=== PATIENT | female | born 1955 | race Caucasian/White ===

== ENCOUNTER 2022-12-18 18:09 | Inpatient (IN) | payer BC, MEDICARE ==
[~2022-12-18 18:09] MED LIST: Iopamidol-370 76% 500 ML MDV (1 ML CHARGE) ONE
[2022-12-18 20:17] LABS: #Monocytes 0.1 thou/uL (0.11-0.59); %Basophils 1.2 % (0.0-1.0); %Eosinophils 1.2 % (0.0-10.0); %Lymphocytes 24.8 % (21.0-51.0); %Monocytes 8.1 % (0.0-10.0); %Neutrophils 64.1 % (42.0-75.0); Hemoglobin 11.6 g/dL (12.0-16.0); Mean Corpuscular HGB CONC 33.8 g/dL (32.0-36.0); Mean Corpuscular Hemoglobin 31.5 pg (27.0-31.0); Mean Corpuscular Volume 93.2 fl (78.0-98.0); Mean Platelet Volume 10.5 fL (7.4-10.4); Platelet Count 104 10x3/uL (130-400); RBC Distribution Width 16.1 % (11.5-14.5); Red Blood Cell (RBC) Count 3.68 mill/uL (4.20-5.40); White Blood Cell (WBC) Count 1.6 10x3/uL (4.8-10.8)
[2022-12-18 20:39] LABS: Lipase 18 U/L (8-78); Magnesium 2.2 mg/dL (1.6-2.6)
[2022-12-18 20:41] LABS: ALT (SGPT) Less than 7 U/L (8-55); AST (SGOT) 12 U/L (5-34); Albumin 3.8 g/dL (3.4-4.8); Alkaline Phosphatase 46 U/L (40-110); Anion Gap 17 mmol/L (10-20); BUN (Urea Nitrogen) 15 mg/dL (9.8-20.1); Bilirubin, Total 1.2 mg/dL (0.2-1.2); CK (CPK) 68 U/L (29-168); Calc. Creatinine Clearance 0 mL/min (70-130); Calcium 9.7 mg/dL (7.8-10.44); Carbon Dioxide 27 mmol/L (23-31); Chloride 98 mmol/L (98-107); Estimated GFR 60; Globulin 3.6 g/dL (2.4-3.5); Glucose 63 mg/dL (80-115); Potassium 3.5 mmol/L (3.5-5.1); Protein, Total 7.4 g/dL (5.8-8.1); Sodium 138 mmol/L (136-145)
[2022-12-18 21:13] LABS: Bacteria/HPF 4+ HPF (None Seen); Bilirubin 1+ (Negative); Blood, Urine Negative (Negative); CAUTI Indications for Culture Alt mental st,lethar; Clarity Turbid (Clear); Glucose, Urine (Dipstick) Normal (Negative); Ketone, Urine 20 mg/dL (Negative); Leukocyte Negative Leu/uL (Negative); Nitrite 2+ (Negative); Protein, Urine (Dipstick) 70 mg/dL (Neg-Trace); RBC/HPF 0-3 HPF (0-3); Specific Gravity, Urine 1.034 (1.002-1.036); Urobilinogen Normal mg/dL (Less than 2)
[2022-12-18 21:14] LABS: Urine Culture Reflex No No
[2022-12-18 21:52] LABS: Actual Bicarbonate (HCO3v) 27.7 mEq/L (22-28); Analyzer IN Cardio ER; Calcium, Ionized (venous) 1.09 mmol/L (1.16-1.32); Chloride (VBG) 99 mmol/L (98-106); Hematocrit-VBG 36 % (36.0-47.0); Hemoglobin (Hb) 12.1 g/dL (11.7-16.1); Potassium (VBG) 3.29 mmol/L (3.70-5.30); Sodium 136.3 mmol/L (133-146); pH (venous) 7.383 (7.32-7.43)
[2022-12-18] MEDS ORDERED: cefTRIAXone (ROCEPHIN) 2 GM VIAL ONE (22:29)
[2022-12-18] MEDS ORDERED: Ondansetron PF 4 MG/2 ML Vial IVP PRN (22:51)
[2022-12-18] MEDS ORDERED: Acetaminophen 325 MG TAB PO PRN (22:51)
[2022-12-18] MEDS ORDERED: Dextrose 50% Abboject 50 ML SYRINGE SLOW IVP PRN (22:55)
[2022-12-18] MEDS ORDERED: Glucagon 1 MG/ML KIT IM PRN (22:55)
[2022-12-18] MEDS ORDERED: Levothyroxine Sodium 200 MCG VIAL SLOW IVP SCH (23:00)
[2022-12-18] MEDS ORDERED: Furosemide 20 MG/2 ML VIAL SLOW IVP SCH (23:15)
[2022-12-19 05:42] LABS: #Monocytes 0.1 thou/uL (0.11-0.59); #Neutrophils 1.3 thou/uL (1.40-6.50); %Basophils 1.1 % (0.0-1.0); %Eosinophils 1.1 % (0.0-10.0); %Lymphocytes 17.5 % (21.0-51.0); %Monocytes 6.8 % (0.0-10.0); %Neutrophils 72.4 % (42.0-75.0); Hemoglobin 12.7 g/dL (12.0-16.0); Mean Corpuscular HGB CONC 32.7 g/dL (32.0-36.0); Mean Corpuscular Hemoglobin 31.1 pg (27.0-31.0); Mean Corpuscular Volume 95.1 fl (78.0-98.0); Mean Platelet Volume 10.8 fL (7.4-10.4); RBC Distribution Width 16.2 % (11.5-14.5); Red Blood Cell (RBC) Count 4.08 mill/uL (4.20-5.40); White Blood Cell (WBC) Count 1.8 10x3/uL (4.8-10.8)
[2022-12-19 05:44] LABS: Manual Diff?? YES; Platelet Count 85 10x3/uL (130-400)
[2022-12-19] MEDS: Furosemide 20 MG/2 ML VIAL SLOW IVP SCH ×2 (05:59→14:18)
[2022-12-19 06:00] LABS: Anion Gap 22 mmol/L (10-20); BUN (Urea Nitrogen) 13 mg/dL (9.8-20.1); Calc. Creatinine Clearance 56 mL/min (70-130); Calcium 9.1 mg/dL (7.8-10.44); Carbon Dioxide 20 mmol/L (23-31); Chloride 98 mmol/L (98-107); Estimated GFR 68; Glucose 121 mg/dL (80-115); Magnesium 2.1 mg/dL (1.6-2.6); Potassium 3.6 mmol/L (3.5-5.1); Sodium 136 mmol/L (136-145)
[2022-12-19] MEDS ORDERED: Levothyroxine 100 MCG SDV IVP SCH (06:00)
[2022-12-19 06:29] LABS: Anisocytosis SLIGHT = 6-15 cells HPF (0-5); Band 20 % (5-11); Burr Cells SLIGHT = 2-5 cells HPF (0-1); Large Platelets 3.3 % (0-5); Lymphocytes 11 % (21-51); Macrocytosis MODERATE=16-30 cells HPF (0-5); Monocytes 2 % (0-10); Neutrophil 67 % (42-75); Platelet Adequacy Comment Platelets Decreased; Poikilocytosis SLIGHT = 6-15 cells HPF (0-5); Total Cell Count 92
[2022-12-19 08:47] LABS: Free T4 (Free Thyroxine) 1.09 ng/dL (0.70-1.48)
[2022-12-19] MEDS: Dextrose 5 %-0.45 % NaCl 1,000 ML IV SCH (11:42)
[2022-12-19] MEDS ORDERED: VANCOMYCIN 1.25 GM/250 ML BAG 1.25 GM in Premix Bag 1 BAG IVPB SCH (15:15)
[2022-12-19] MEDS: cefTRIAXone\\ROCEPHIN 1 GM in Sodium Chloride 0.9% 100 ML IVPB SCH (23:40)
[2022-12-20] MEDS ORDERED: Sodium Chloride 0.9% 500 ML IV SCH (00:30)
[2022-12-20] MEDS ORDERED: Midodrine HCl 5 MG TAB PO SCH (01:15)
[2022-12-20 04:05] LABS: Hemoglobin 10.2 g/dL (12.0-16.0); Mean Corpuscular HGB CONC 33.6 g/dL (32.0-36.0); Mean Corpuscular Hemoglobin 31.5 pg (27.0-31.0); Mean Corpuscular Volume 93.8 fl (78.0-98.0); Mean Platelet Volume 10.5 fL (7.4-10.4); RBC Distribution Width 15.7 % (11.5-14.5); Red Blood Cell (RBC) Count 3.24 mill/uL (4.20-5.40); White Blood Cell (WBC) Count 1.3 10x3/uL (4.8-10.8)
[2022-12-20 04:15] LABS: Delete Auto Diff?? YES; Manual Diff?? YES; Platelet Count 81 10x3/uL (130-400)
[2022-12-20 04:35] LABS: Anion Gap 15 mmol/L (10-20); BUN (Urea Nitrogen) 11 mg/dL (9.8-20.1); Calc. Creatinine Clearance 61 mL/min (70-130); Calcium 8.6 mg/dL (7.8-10.44); Carbon Dioxide 31 mmol/L (23-31); Chloride 95 mmol/L (98-107); Estimated GFR 77; Glucose 75 mg/dL (80-115); Magnesium 1.9 mg/dL (1.6-2.6); Sodium 138 mmol/L (136-145)
[2022-12-20 04:44] LABS: Band 5 % (5-11); CellaVision Operator ID lab.abc; Eosinophils 2 % (0-10); Large Platelets 3.2 % (0-5); Lymphocytes 13 % (21-51); Monocytes 2 % (0-10); Neutrophil 78 % (42-75); Platelet Adequacy Comment Platelets Decreased; Smudge Cells 25.5 %; Total Cell Count 94
[2022-12-20 04:45] LABS: Free T4 (Free Thyroxine) 0.76 ng/dL (0.70-1.48); Thyroid Stimulating Hormone 37.6963 uIU/mL (0.35-4.94)
[2022-12-20 05:02] LABS: Potassium 2.5 mmol/L (3.5-5.1)
[2022-12-20] MEDS: Dextrose 5 %-0.45 % NaCl 1,000 ML IV SCH (05:07)
[2022-12-20] MEDS: Furosemide 20 MG/2 ML VIAL SLOW IVP SCH (05:11)
[2022-12-20] MEDS: Levothyroxine Sodium 100 MCG TAB PO SCH (05:12)
[2022-12-20] MEDS ORDERED: Potassium Chloride 20 MEQ in Premix Bag 1 BAG IVPB SCH (05:15)
[2022-12-20] MEDS: Potassium Chloride 20 MEQ TAB PO SCH ×3 (07:15→21:26)
[2022-12-20] MEDS ORDERED: Pantoprazole 40 MG VIAL IVP SCH (09:00)
[2022-12-20] MEDS ORDERED: Bupivacaine HCl 0.5%/Epinephrine 1:200,000/PF 30 ml Vial ONE (09:05)
[2022-12-20] MEDS ORDERED: Ketamine 50 MG/ML (10ML VIAL) ONE (09:14)
[2022-12-20] MEDS ORDERED: Norepinephrine 4 MG/4 ML VIAL ONE (09:15)
[2022-12-20] MEDS ORDERED: Succinylcholine 200 MG/10 ml SYRINGE FS ONE (09:51)
[2022-12-20] MEDS ORDERED: ePHEDrine Sulfate 50 MG/10 ML VIAL ONE (09:51)
[2022-12-20] MEDS ORDERED: PHENYLEPHRINE-NS 100 MCG/ML 10 ML SYRINGE ONE (09:51)
[2022-12-20] MEDS ORDERED: Glycopyrrolate 0.2 MG/ML 5 ML SYRINGE ONE (09:51)
[2022-12-20] MEDS ORDERED: Ondansetron PF 4 MG/2 ML Vial ONE (09:51)
[2022-12-20] MEDS ORDERED: traMADol HCl 50 MG TAB PO PRN (10:51)
[2022-12-20] MEDS: Polyethylene Glycol 3350 17 GM Packet PO SCH (14:34)
[2022-12-20 16:13] LABS: Amphetamine Not Detected (NotDetected); Barbiturates Screen Not Detected (NotDetected); Benzodiazepine Screen Not Detected (NotDetected); Cocaine Metabolite Screen Not Detected (NotDetected); Methadone Not Detected (NotDetected); Methamphetamine Not Detected (NotDetected); Opiate Screen Not Detected (NotDetected); Oxycodone Screen Not Detected (NotDetected); Phencyclidine (PCP) Not Detected (NotDetected); THC/Cannabinoid Screen Not Detected (NotDetected); Tricyclic Screen Not Detected (NotDetected)
[2022-12-20] MEDS: Vancomycin 1 GM in Premix Bag 1 BAG IVPB SCH (17:31)
[2022-12-20 22:30] LABS: #Monocytes 0.1 thou/uL (0.11-0.59); #Neutrophils 2.1 thou/uL (1.40-6.50); %Basophils 0.8 % (0.0-1.0); %Eosinophils 0.4 % (0.0-10.0); %Lymphocytes 12.6 % (21.0-51.0); %Monocytes 3.1 % (0.0-10.0); %Neutrophils 82.3 % (42.0-75.0); Hemoglobin 12.5 g/dL (12.0-16.0); Mean Corpuscular HGB CONC 33.2 g/dL (32.0-36.0); Mean Corpuscular Volume 93.3 fl (78.0-98.0); Mean Platelet Volume 10.5 fL (7.4-10.4); RBC Distribution Width 15.6 % (11.5-14.5); Red Blood Cell (RBC) Count 4.03 mill/uL (4.20-5.40); White Blood Cell (WBC) Count 2.5 10x3/uL (4.8-10.8)
[2022-12-20 22:36] LABS: Platelet Count 73 10x3/uL (130-400)
[2022-12-20 22:51] LABS: ALT (SGPT) Less than 7 U/L (8-55); AST (SGOT) 12 U/L (5-34); Albumin 3.2 g/dL (3.4-4.8); Alkaline Phosphatase 41 U/L (40-110); Anion Gap 15 mmol/L (10-20); BUN (Urea Nitrogen) 9 mg/dL (9.8-20.1); Bilirubin, Total 1.1 mg/dL (0.2-1.2); Calc. Creatinine Clearance 67 mL/min (70-130); Calcium 8.4 mg/dL (7.8-10.44); Carbon Dioxide 29 mmol/L (23-31); Chloride 95 mmol/L (98-107); Estimated GFR 91; Globulin 2.7 g/dL (2.4-3.5); Glucose 82 mg/dL (80-115); Potassium 2.7 mmol/L (3.5-5.1); Protein, Total 5.9 g/dL (5.8-8.1); Sodium 136 mmol/L (136-145)
[2022-12-20] MEDS: cefTRIAXone\\ROCEPHIN 1 GM in Sodium Chloride 0.9% 100 ML IVPB SCH (23:03)
[2022-12-20 23:37] LABS: Magnesium 1.8 mg/dL (1.6-2.6)
[2022-12-21] MEDS ORDERED: Magnesium 2 GM/50 ML(in water) 2 GM in Premix Bag 1 BAG IVPB SCH (00:30)
[2022-12-21] MEDS: Potassium Chloride 20 MEQ TAB PO SCH ×3 (01:07→18:37)
[2022-12-21] MEDS: Levothyroxine Sodium 100 MCG TAB PO SCH (06:17)
[2022-12-21 07:34] LABS: #Monocytes 0.1 thou/uL (0.11-0.59); #Neutrophils 2.1 thou/uL (1.40-6.50); %Basophils 0.4 % (0.0-1.0); %Eosinophils 0.4 % (0.0-10.0); %Lymphocytes 13.9 % (21.0-51.0); %Monocytes 2.8 % (0.0-10.0); %Neutrophils 82.1 % (42.0-75.0); Hemoglobin 12.7 g/dL (12.0-16.0); Mean Corpuscular Hemoglobin 31.2 pg (27.0-31.0); Mean Corpuscular Volume 91.6 fl (78.0-98.0); Mean Platelet Volume 10.2 fL (7.4-10.4); RBC Distribution Width 15.4 % (11.5-14.5); Red Blood Cell (RBC) Count 4.07 mill/uL (4.20-5.40); White Blood Cell (WBC) Count 2.5 10x3/uL (4.8-10.8)
[2022-12-21 07:54] LABS: Anion Gap 15 mmol/L (10-20); BUN (Urea Nitrogen) 9 mg/dL (9.8-20.1); Calc. Creatinine Clearance 68 mL/min (70-130); Calcium 8.5 mg/dL (7.8-10.44); Carbon Dioxide 30 mmol/L (23-31); Chloride 93 mmol/L (98-107); Estimated GFR 90; Glucose 71 mg/dL (80-115); Potassium 3.5 mmol/L (3.5-5.1); Sodium 134 mmol/L (136-145)
[2022-12-21 07:55] LABS: Acetaminophen Less than 10 mcg/mL (10.0-30.0); Alcohol Less than 10.0 mg/dL (Less than 10); Salicylate Less than 8.0 mg/dL (15.0-30.0)
[2022-12-21 08:01] LABS: Platelet Count 68 10x3/uL (130-400)
[2022-12-21 08:02] LABS: Critical Call w/ Read Back NOT CALLED
[2022-12-21 08:11] LABS: HBCM Index 0.16 S/CO (0-0.79); HIV (1/2) Antibody/Antigen Non-Reactive (NonReactive); HIV 1/2 INDEX 0.16 S/CO (<1.00); Hep A IgM AB Non-Reactive S/CO (NonReactive); Hep A IgM S/CO 0.16 S/CO (0-0.79); Hep B Surf Ag Non-Reactive S/CO (NonReactive); Hep C IgG Ab Non-Reactive S/CO (NonReactive); Hep C Index 0.11 S/CO (0-0.79); Hepatitis B Core IgM Abs Non-Reactive S/CO (NonReactive)
[2022-12-21] MEDS: Polyethylene Glycol 3350 17 GM Packet PO SCH (09:11)
[2022-12-21 09:20] LABS: PTT 37.1 sec (22.9-36.1)
[2022-12-21 11:47] LABS: Syphilis Antibody Nonreactive (Nonreactive); Syphilis Antibody Index 0.28 S/CO (<1.00 Non-Reactive)
[2022-12-21] MEDS ORDERED: Temazepam 15 MG CAP PO PRN (14:34)
[2022-12-21 14:45] LABS: INR-International Normal Ratio 1.1; Prothrombin Time 14.5 sec (12.0-14.7)
[2022-12-21 16:02] LABS: Vancomycin, Trough 13.7 ug/mL
[2022-12-21] MEDS: Vancomycin 1 GM in Premix Bag 1 BAG IVPB SCH (16:37)
[2022-12-21] MEDS: cefTRIAXone\\ROCEPHIN 1 GM in Sodium Chloride 0.9% 100 ML IVPB SCH (22:50)
[2022-12-22] MEDS: Levothyroxine Sodium 100 MCG TAB PO SCH (05:40)
[2022-12-22] MEDS: Polyethylene Glycol 3350 17 GM Packet PO SCH (08:43)
[2022-12-22] MEDS: Potassium Chloride 20 MEQ TAB PO SCH ×2 (08:43→16:30)
[2022-12-22 11:03] LABS: #Monocytes 0.1 thou/uL (0.11-0.59); #Neutrophils 1.8 thou/uL (1.40-6.50); %Basophils 1.1 % (0.0-1.0); %Eosinophils 0.8 % (0.0-10.0); %Lymphocytes 23.4 % (21.0-51.0); %Monocytes 4.2 % (0.0-10.0); %Neutrophils 70.1 % (42.0-75.0); Hemoglobin 12.4 g/dL (12.0-16.0); Mean Corpuscular HGB CONC 33.2 g/dL (32.0-36.0); Mean Corpuscular Hemoglobin 31.1 pg (27.0-31.0); Mean Corpuscular Volume 93.5 fl (78.0-98.0); Mean Platelet Volume 10.6 fL (7.4-10.4); RBC Distribution Width 15.5 % (11.5-14.5); Red Blood Cell (RBC) Count 3.99 mill/uL (4.20-5.40); White Blood Cell (WBC) Count 2.6 10x3/uL (4.8-10.8)
[2022-12-22 11:19] LABS: Platelet Count 57 10x3/uL (130-400)
[2022-12-22 11:28] LABS: ALT (SGPT) Less than 7 U/L (8-55); AST (SGOT) 7 U/L (5-34); Alkaline Phosphatase 44 U/L (40-110); Anion Gap 16 mmol/L (10-20); BUN (Urea Nitrogen) 10 mg/dL (9.8-20.1); Bilirubin, Total 0.8 mg/dL (0.2-1.2); Calc. Creatinine Clearance 55 mL/min (70-130); Calcium 8.6 mg/dL (7.8-10.44); Carbon Dioxide 27 mmol/L (23-31); Chloride 94 mmol/L (98-107); Estimated GFR 69; Globulin 2.7 g/dL (2.4-3.5); Glucose 72 mg/dL (80-115); Magnesium 2.1 mg/dL (1.6-2.6); Phosphorus 1.7 mg/dL (2.3-4.7); Potassium 4.4 mmol/L (3.5-5.1); Protein, Total 5.7 g/dL (5.8-8.1); Sodium 133 mmol/L (136-145)
[2022-12-22] MEDS ORDERED: Electrolyte Replacement Protocol 1 EACH FS SCH (14:30)
[2022-12-22 16:24] LABS: ANA Symphony (Qualitative) Negative (Negative); ANA Symphony (Quantitative) 0.3 Ratio (< 0.7 Negative); dsDNA IgG Antibody 1.5 IU/mL (<10 Negative)
[2022-12-22] MEDS: cefTRIAXone\\ROCEPHIN 1 GM in Sodium Chloride 0.9% 100 ML IVPB SCH (22:34)
[2022-12-22] MEDS: PHOS-NAK 1 PKT PACK PO SCH (22:34)
[2022-12-23] MEDS: PHOS-NAK 1 PKT PACK PO SCH (01:43)
[2022-12-23] MEDS: Levothyroxine Sodium 100 MCG TAB PO SCH (05:40)
[2022-12-23 08:08] LABS: #Monocytes 0.1 thou/uL (0.11-0.59); #Neutrophils 1.6 thou/uL (1.40-6.50); %Basophils 1.2 % (0.0-1.0); %Eosinophils 0.4 % (0.0-10.0); %Lymphocytes 28.8 % (21.0-51.0); %Monocytes 4.5 % (0.0-10.0); %Neutrophils 64.7 % (42.0-75.0); Hemoglobin 12.5 g/dL (12.0-16.0); Mean Corpuscular HGB CONC 34.2 g/dL (32.0-36.0); Mean Corpuscular Hemoglobin 30.9 pg (27.0-31.0); Mean Platelet Volume 10.3 fL (7.4-10.4); RBC Distribution Width 15.4 % (11.5-14.5); Red Blood Cell (RBC) Count 4.04 mill/uL (4.20-5.40); White Blood Cell (WBC) Count 2.4 10x3/uL (4.8-10.8)
[2022-12-23 08:30] LABS: Platelet Count 49 10x3/uL (130-400)
[2022-12-23] MEDS: Potassium Chloride 20 MEQ TAB PO SCH ×2 (08:32→17:59)
[2022-12-23] MEDS: Polyethylene Glycol 3350 17 GM Packet PO SCH (08:32)
[2022-12-23 08:45] LABS: ALT (SGPT) Less than 7 U/L (8-55); AST (SGOT) 8 U/L (5-34); Alkaline Phosphatase 44 U/L (40-110); Anion Gap 16 mmol/L (10-20); BUN (Urea Nitrogen) 10 mg/dL (9.8-20.1); Bilirubin, Total 0.9 mg/dL (0.2-1.2); Calc. Creatinine Clearance 64 mL/min (70-130); Calcium 8.7 mg/dL (7.8-10.44); Carbon Dioxide 26 mmol/L (23-31); Chloride 99 mmol/L (98-107); Estimated GFR 83; Globulin 2.7 g/dL (2.4-3.5); Glucose 76 mg/dL (80-115); Phosphorus 3.6 mg/dL (2.3-4.7); Potassium 4.8 mmol/L (3.5-5.1); Protein, Total 5.7 g/dL (5.8-8.1); Sodium 136 mmol/L (136-145)
[2022-12-23] MEDS ORDERED: Magnesium 2 GM/50 ML(in water) 2 GM in Premix Bag 1 BAG IVPB SCH (11:45)
[2022-12-23 12:12] LABS: Mean Corpuscular Volume 90.6 fl (78.0-98.0)
[2022-12-23] MEDS: Sodium Chloride 0.9% 1,000 ML IV SCH (14:44)
[2022-12-24] MEDS: Levothyroxine Sodium 100 MCG TAB PO SCH (05:55)
[2022-12-24 06:51] LABS: #Monocytes 0.1 thou/uL (0.11-0.59); #Neutrophils 1.6 thou/uL (1.40-6.50); %Basophils 1.7 % (0.0-1.0); %Eosinophils 0.8 % (0.0-10.0); %Lymphocytes 27.1 % (21.0-51.0); Mean Corpuscular HGB CONC 34.5 g/dL (32.0-36.0); Mean Corpuscular Hemoglobin 30.9 pg (27.0-31.0); Mean Corpuscular Volume 89.7 fl (78.0-98.0); Mean Platelet Volume 10.9 fL (7.4-10.4); RBC Distribution Width 15.4 % (11.5-14.5); Red Blood Cell (RBC) Count 3.88 mill/uL (4.20-5.40); White Blood Cell (WBC) Count 2.4 10x3/uL (4.8-10.8)
[2022-12-24 06:56] LABS: Platelet Count 45 10x3/uL (130-400)
[2022-12-24 07:19] LABS: Anion Gap 14 mmol/L (10-20); BUN (Urea Nitrogen) 10 mg/dL (9.8-20.1); Calc. Creatinine Clearance 67 mL/min (70-130); Calcium 8.6 mg/dL (7.8-10.44); Carbon Dioxide 24 mmol/L (23-31); Chloride 99 mmol/L (98-107); Estimated GFR 87; Glucose 78 mg/dL (80-115); Iron 107 ug/dL (50-170); Iron Binding Capacity, Total 141 mcg/dL (265-497); Potassium 4.3 mmol/L (3.5-5.1); Sodium 133 mmol/L (136-145)
[2022-12-24 07:41] LABS: Ferritin 394.84 ng/mL (10-291)
[2022-12-24] MEDS: Potassium Chloride 20 MEQ TAB PO SCH ×2 (08:49→16:38)
[2022-12-24] MEDS: Polyethylene Glycol 3350 17 GM Packet PO SCH (08:49)
[2022-12-24] MEDS: Sodium Chloride 0.9% 1,000 ML IV SCH (10:00)
[2022-12-25] MEDS: Levothyroxine Sodium 100 MCG TAB PO SCH (04:54)
[2022-12-25 06:40] LABS: #Monocytes 0.2 thou/uL (0.11-0.59); #Neutrophils 1.6 thou/uL (1.40-6.50); %Basophils 1.2 % (0.0-1.0); %Eosinophils 0.8 % (0.0-10.0); %Lymphocytes 24.8 % (21.0-51.0); %Neutrophils 65.8 % (42.0-75.0); Hemoglobin 12.7 g/dL (12.0-16.0); Mean Corpuscular HGB CONC 34.4 g/dL (32.0-36.0); Mean Corpuscular Hemoglobin 31.3 pg (27.0-31.0); Mean Corpuscular Volume 90.9 fl (78.0-98.0); Mean Platelet Volume 11.4 fL (7.4-10.4); RBC Distribution Width 15.2 % (11.5-14.5); Red Blood Cell (RBC) Count 4.06 mill/uL (4.20-5.40); White Blood Cell (WBC) Count 2.4 10x3/uL (4.8-10.8)
[2022-12-25 06:44] LABS: Platelet Count 40 10x3/uL (130-400)
[2022-12-25 07:04] LABS: Anion Gap 12 mmol/L (10-20); BUN (Urea Nitrogen) 10 mg/dL (9.8-20.1); Calc. Creatinine Clearance 70 mL/min (70-130); Calcium 8.6 mg/dL (7.8-10.44); Carbon Dioxide 24 mmol/L (23-31); Chloride 98 mmol/L (98-107); Estimated GFR 93; Glucose 73 mg/dL (80-115); Potassium 4.1 mmol/L (3.5-5.1); Sodium 130 mmol/L (136-145)
[2022-12-25] MEDS: Sodium Chloride 0.9% 1,000 ML IV SCH (08:38)
[2022-12-25] MEDS: Potassium Chloride 20 MEQ TAB PO SCH ×2 (08:39→16:30)
[2022-12-25] MEDS: Polyethylene Glycol 3350 17 GM Packet PO SCH (08:39)
[2022-12-25] MEDS ORDERED: Megestrol Acetate 400 MG/10 ML UDCUP PO SCH (09:00)
[2022-12-25] MEDS: Lactated Ringer's 1,000 ML IV SCH (11:14)
[2022-12-25 15:06] LABS: Bacteria/HPF None Seen HPF (None Seen); Bilirubin Negative (Negative); Blood, Urine 2+ (Negative); Clarity Turbid (Clear); Glucose, Urine (Dipstick) Normal (Negative); Ketone, Urine 10 mg/dL (Negative); Leukocyte Negative Leu/uL (Negative); Nitrite Negative (Negative); Protein, Urine (Dipstick) Negative (Neg-Trace); RBC/HPF 21-50 HPF (0-3); Specific Gravity, Urine 1.017 (1.002-1.036); Squamous Epithelial 0-3 HPF (0-3); Urobilinogen Normal mg/dL (Less than 2); WBC/HPF 0-3 HPF (0-3)
[2022-12-25] MEDS ORDERED: Mirtazapine 15 MG Soltab PO SCH (21:00)
[2022-12-26] MEDS: Levothyroxine Sodium 100 MCG TAB PO SCH (05:51)
[2022-12-26] MEDS: Lactated Ringer's 1,000 ML IV SCH (05:51)
[2022-12-26 06:28] LABS: #Monocytes 0.2 thou/uL (0.11-0.59); #Neutrophils 1.4 thou/uL (1.40-6.50); %Basophils 0.9 % (0.0-1.0); %Eosinophils 0.9 % (0.0-10.0); %Lymphocytes 26.2 % (21.0-51.0); %Neutrophils 64.5 % (42.0-75.0); Hemoglobin 11.5 g/dL (12.0-16.0); Mean Corpuscular HGB CONC 35.1 g/dL (32.0-36.0); Mean Corpuscular Hemoglobin 31.6 pg (27.0-31.0); Mean Corpuscular Volume 90.1 fl (78.0-98.0); Mean Platelet Volume 10.7 fL (7.4-10.4); RBC Distribution Width 14.7 % (11.5-14.5); Red Blood Cell (RBC) Count 3.64 mill/uL (4.20-5.40); White Blood Cell (WBC) Count 2.1 10x3/uL (4.8-10.8)
[2022-12-26 06:36] LABS: Platelet Count 44 10x3/uL (130-400)
[2022-12-26] MEDS: Potassium Chloride 20 MEQ TAB PO SCH ×2 (08:27→16:47)
[2022-12-26] MEDS: Polyethylene Glycol 3350 17 GM Packet PO SCH (08:27)
[2022-12-26] MEDS ORDERED: Megestrol Acetate 800 MG/20 ML UDCUP PO SCH (09:00)
[2022-12-26] MEDS ORDERED: Ondansetron PF 4 MG/2 ML Vial IVP PRN (15:20)
[2022-12-26] MEDS: Mirtazapine 15 MG TAB PO SCH (21:41)
[2022-12-27] MEDS: Levothyroxine Sodium 100 MCG TAB PO SCH (05:04)
[2022-12-27] MEDS: Lactated Ringer's 1,000 ML IV SCH (05:04)
[2022-12-27] MEDS: Potassium Chloride 20 MEQ TAB PO SCH ×2 (09:25→16:46)
[2022-12-27] MEDS: Polyethylene Glycol 3350 17 GM Packet PO SCH (09:25)
[2022-12-27 11:16] LABS: #Monocytes 0.1 thou/uL (0.11-0.59); #Neutrophils 1.6 thou/uL (1.40-6.50); %Basophils 1.3 % (0.0-1.0); %Eosinophils 0.9 % (0.0-10.0); %Neutrophils 70.4 % (42.0-75.0); Hemoglobin 12.8 g/dL (12.0-16.0); Mean Corpuscular Hemoglobin 30.8 pg (27.0-31.0); Mean Corpuscular Volume 90.8 fl (78.0-98.0); Mean Platelet Volume 11.3 fL (7.4-10.4); RBC Distribution Width 14.9 % (11.5-14.5); Red Blood Cell (RBC) Count 4.15 mill/uL (4.20-5.40); White Blood Cell (WBC) Count 2.3 10x3/uL (4.8-10.8)
[2022-12-27 11:18] LABS: Platelet Count 57 10x3/uL (130-400)
[2022-12-27 12:03] LABS: Anion Gap 9 mmol/L (10-20); BUN (Urea Nitrogen) 8 mg/dL (9.8-20.1); Calc. Creatinine Clearance 67 mL/min (70-130); Carbon Dioxide 27 mmol/L (23-31); Chloride 96 mmol/L (98-107); Estimated GFR 86; Glucose 82 mg/dL (80-115); Sodium 128 mmol/L (136-145)
[2022-12-27] MEDS ORDERED: Sodium Chloride 0.9% 500 ML IV SCH (12:30)
[2022-12-27] MEDS: Albumin 25% 25 GM/100 ML BOT IVPB SCH (13:15)
[2022-12-27] MEDS: Sodium Chloride 0.9% 1,000 ML IV SCH ×2 (13:16→21:53)
[2022-12-27 14:00] VITALS: BMI 24.3
[2022-12-27] MEDS: Mirtazapine 15 MG TAB PO SCH (21:47)
[2022-12-28] MEDS: Levothyroxine Sodium 100 MCG TAB PO SCH (06:23)
[2022-12-28 06:48] LABS: #Monocytes 0.3 thou/uL (0.11-0.59); #Neutrophils 1.7 thou/uL (1.40-6.50); %Basophils 0.8 % (0.0-1.0); %Eosinophils 0.8 % (0.0-10.0); %Lymphocytes 22.7 % (21.0-51.0); %Monocytes 10.2 % (0.0-10.0); %Neutrophils 65.1 % (42.0-75.0); Hemoglobin 10.4 g/dL (12.0-16.0); Mean Corpuscular HGB CONC 34.2 g/dL (32.0-36.0); Mean Corpuscular Volume 90.7 fl (78.0-98.0); Mean Platelet Volume 11.2 fL (7.4-10.4); RBC Distribution Width 14.9 % (11.5-14.5); Red Blood Cell (RBC) Count 3.35 mill/uL (4.20-5.40); White Blood Cell (WBC) Count 2.6 10x3/uL (4.8-10.8)
[2022-12-28 07:04] LABS: Manual Diff?? YES; Platelet Count 51 10x3/uL (130-400)
[2022-12-28 07:13] LABS: Anion Gap 8 mmol/L (10-20); BUN (Urea Nitrogen) 8 mg/dL (9.8-20.1); Calc. Creatinine Clearance 69 mL/min (70-130); Calcium 8.2 mg/dL (7.8-10.44); Carbon Dioxide 26 mmol/L (23-31); Chloride 100 mmol/L (98-107); Estimated GFR 86; Glucose 79 mg/dL (80-115); Sodium 130 mmol/L (136-145)
[2022-12-28 08:15] LABS: Anisocytosis SLIGHT = 6-15 cells HPF (0-5); Band 1 % (5-11); Burr Cells SLIGHT = 2-5 cells HPF (0-1); CellaVision Operator ID LAB.NR; Eosinophils 3 % (0-10); Lymphocytes 16 % (21-51); Monocytes 6 % (0-10); Neutrophil 73 % (42-75); Platelet Adequacy Comment Platelets Decreased; Total Cell Count 101
[2022-12-28] MEDS: Potassium Chloride 20 MEQ TAB PO SCH ×2 (08:19→16:48)
[2022-12-28] MEDS: Polyethylene Glycol 3350 17 GM Packet PO SCH (08:19)
[2022-12-28] MEDS: Albumin 25% 25 GM/100 ML BOT IVPB SCH (12:00)
[2022-12-28] MEDS: Sodium Chloride 0.9% 1,000 ML IV SCH (12:09)
[2022-12-28] MEDS: Mirtazapine 15 MG TAB PO SCH (20:35)
[2022-12-29] MEDS: Sodium Chloride 0.9% 1,000 ML IV SCH (01:36)
[2022-12-29] MEDS: Levothyroxine Sodium 100 MCG TAB PO SCH (05:36)
[2022-12-29] MEDS: Polyethylene Glycol 3350 17 GM Packet PO SCH (08:36)
[2022-12-29] MEDS: Potassium Chloride 20 MEQ TAB PO SCH ×2 (08:36→16:23)
[2022-12-29] MEDS ORDERED: Mirtazapine 30 MG TAB PO SCH (21:00)
[2022-12-30] MEDS: Levothyroxine Sodium 100 MCG TAB PO SCH (05:42)
[2022-12-30] MEDS ORDERED: Levothyroxine Sodium 100 MCG TAB PO SCH (06:00)
[2022-12-30 06:38] LABS: #Monocytes 0.3 thou/uL (0.11-0.59); #Neutrophils 1.7 thou/uL (1.40-6.50); %Basophils 1.1 % (0.0-1.0); %Eosinophils 1.1 % (0.0-10.0); %Monocytes 10.1 % (0.0-10.0); %Neutrophils 62.3 % (42.0-75.0); Hemoglobin 9.7 g/dL (12.0-16.0); Mean Corpuscular Volume 91.1 fl (78.0-98.0); Mean Platelet Volume 10.8 fL (7.4-10.4); RBC Distribution Width 15.1 % (11.5-14.5); Red Blood Cell (RBC) Count 3.13 mill/uL (4.20-5.40); White Blood Cell (WBC) Count 2.7 10x3/uL (4.8-10.8)
[2022-12-30 06:41] LABS: Platelet Count 89 10x3/uL (130-400)
[2022-12-30 07:04] LABS: Anion Gap 10 mmol/L (10-20); BUN (Urea Nitrogen) 5 mg/dL (9.8-20.1); Calc. Creatinine Clearance 67 mL/min (70-130); Calcium 8.7 mg/dL (7.8-10.44); Carbon Dioxide 24 mmol/L (23-31); Chloride 101 mmol/L (98-107); Estimated GFR 86; Glucose 79 mg/dL (80-115); Sodium 131 mmol/L (136-145)
[2022-12-30] MEDS: Polyethylene Glycol 3350 17 GM Packet PO SCH (08:41)
[2022-12-30] MEDS: Potassium Chloride 20 MEQ TAB PO SCH ×2 (08:41→17:27)
[2022-12-30 17:59] VITALS: BP 108/67; TEMP 97
== END 2022-12-30 17:48 | DRG 270 ==
LOC: ERS 18:09 → 2SE 22:35 → CCU 12-20 02:35 → T4-A 12-20 11:05
PROVIDERS: ADMIT Internal Medicine; ATTEND Internal Medicine
PROC: 0W9D0ZZ Drainage of Pericardial Cavity, Open Approach (ICD-10-PCS; principal; 2022-12-20)
DX: I31.39 Other pericardial effusion (noninflammatory) (principal); G93.41 Metabolic encephalopathy; J90 Pleural effusion, not elsewhere classified; D61.818 Other pancytopenia; N30.00 Acute cystitis without hematuria; E87.20 Acidosis, unspecified; E87.1 Hypo-osmolality and hyponatremia; R18.8 Other ascites; I31.4 Cardiac tamponade; E89.0 Postprocedural hypothyroidism; E16.2 Hypoglycemia, unspecified; E87.6 Hypokalemia; K76.0 Fatty (change of) liver, not elsewhere classified; N28.1 Cyst of kidney, acquired; I95.1 Orthostatic hypotension; B96.20 Unspecified Escherichia coli [E. coli] as the cause of diseases classified elsewhere; E83.39 Other disorders of phosphorus metabolism; Z79.899 Other long term (current) drug therapy; Z90.710 Acquired absence of both cervix and uterus; Z85.850 Personal history of malignant neoplasm of thyroid; Z91.148 Patient's other noncompliance with medication regimen for other reason
CPT/HCPCS: 36415; 36416; 51701; 70450; 70551; 71045; 74018; 74177; 80048; 80053; 80074; 80202; 80306; 80307; 81001; 81003; 81015; 82533; 82550; 82607; 82728; 82805; 83540; 83550; 83605; 83690; 83735; 83880; 84100; 84145; 84439; 84443; 84481; 85025; 85610; 85730; 86038; 86140; 86225; 86780; 87040; 87070; 87077; 87086; 87186; 87205; 87389; 88184; 93005; 93010; 93306; 96365; 96375; C9113; J0696; J1940; J2405; J3370; J3370-JW; J3475; J3480; J3490; J7030; J7042; J7050; J7120; J7999; P9045; P9047; Q9967

== ENCOUNTER 2023-01-10 23:08 | Inpatient (IN) | payer BC, MEDICARE ==
[2023-01-11] MEDS ORDERED: Acetaminophen 325 MG TAB PO PRN (00:50)
[2023-01-11] MEDS ORDERED: Ondansetron ODT 4 MG TAB PO PRN (00:50)
[2023-01-11] MEDS ORDERED: Acetaminophen 650 MG Suppository PR PRN (00:50)
[2023-01-11] MEDS ORDERED: Ondansetron PF 4 MG/2 ML Vial IVP PRN (00:50)
[2023-01-11] MEDS ORDERED: Senokot S 8.6-50 MG TAB PO PRN (00:50)
[2023-01-11] MEDS ORDERED: Piperacillin/Tazobactam 3.375 GM in Sodium Chloride 0.9% 100 ML IVPB SCH (01:00)
[2023-01-11] MEDS ORDERED: Electrolyte Replacement Protocol FS SCH (01:23)
[2023-01-11 01:24] LABS: #Basophils 0.1 thou/uL (0.0-0.2); #Monocytes 0.4 thou/uL (0.11-0.59); #Neutrophils 3.2 thou/uL (1.40-6.50); %Basophils 1.3 % (0.0-1.0); %Eosinophils 0.7 % (0.0-10.0); %Lymphocytes 18.6 % (21.0-51.0); %Monocytes 8.1 % (0.0-10.0); %Neutrophils 70.4 % (42.0-75.0); Hematocrit 25.6 % (36.0-47.0); Hemoglobin 8.3 g/dL (12.0-16.0); Mean Corpuscular HGB CONC 32.4 g/dL (32.0-36.0); Mean Corpuscular Hemoglobin 31.1 pg (27.0-31.0); Mean Corpuscular Volume 95.9 fl (78.0-98.0); Mean Platelet Volume 9.7 fL (7.4-10.4); Platelet Count 382 10x3/uL (130-400); RBC Distribution Width 16.4 % (11.5-14.5); Red Blood Cell (RBC) Count 2.67 mill/uL (4.20-5.40); White Blood Cell (WBC) Count 4.6 10x3/uL (4.8-10.8)
[2023-01-11] MEDS ORDERED: Dextrose 5 %-0.45 % NaCl 1,000 ML IV SCH (01:30)
[2023-01-11 01:38] LABS: ALT (SGPT) Less than 7 U/L (8-55); AST (SGOT) 9 U/L (5-34); Albumin 3.4 g/dL (3.4-4.8); Alkaline Phosphatase 169 U/L (40-110); Anion Gap 15 mmol/L (10-20); BUN (Urea Nitrogen) 13 mg/dL (9.8-20.1); Bilirubin, Total 0.9 mg/dL (0.2-1.2); Calc. Creatinine Clearance 0 mL/min (70-130); Calcium 8.6 mg/dL (7.8-10.44); Carbon Dioxide 24 mmol/L (23-31); Chloride 103 mmol/L (98-107); Estimated GFR 74; Globulin 3.3 g/dL (2.4-3.5); Glucose 79 mg/dL (80-115); Potassium 3.4 mmol/L (3.5-5.1); Protein, Total 6.7 g/dL (5.8-8.1); Sodium 139 mmol/L (136-145)
[2023-01-11] MEDS ORDERED: Temazepam 15 MG CAP PO PRN (01:38)
[2023-01-11] MEDS ORDERED: Cefepime 2 GM in Sodium Chloride 0.9% 100 ML IVPB SCH ×2 (02:00→03:00)
[2023-01-11] MEDS ORDERED: VANCOMYCIN 1.25 GM/250 ML BAG 1.25 GM in Premix Bag 1 BAG IVPB SCH (02:00)
[2023-01-11 02:03] LABS: Magnesium 1.8 mg/dL (1.6-2.6)
[2023-01-11] MEDS ORDERED: Magnesium 2 GM/50 ML(in water) 2 GM in Premix Bag 1 BAG IVPB SCH (04:00)
[2023-01-11] MEDS: Potassium Chloride 20 MEQ in Premix Bag 1 BAG IVPB SCH ×2 (04:45→10:06)
[2023-01-11] MEDS ORDERED: Levothyroxine Sodium 100 MCG TAB PO SCH (06:00)
[2023-01-11] MEDS: Levothyroxine Sodium 100 MCG TAB PO SCH (06:47)
[2023-01-11] MEDS: Piperacillin/Tazobactam 3.375 GM in Sodium Chloride 0.9% 100 ML IVPB SCH ×3 (06:50→21:08)
[2023-01-11] MEDS ORDERED: Potassium Chloride 20 MEQ TAB PO SCH (08:00)
[2023-01-11] MEDS ORDERED: Famotidine 20 MG TAB PO SCH (09:00)
[2023-01-11] MEDS ORDERED: Famotidine/PF 20 mg/2ml Vial SLOW IVP SCH (09:00)
[2023-01-11 09:16] VITALS: BMI 18.9
[2023-01-11] MEDS: Potassium Chloride 20 MEQ TAB PO SCH ×2 (10:06→16:03)
[2023-01-11] MEDS ORDERED: Iopamidol-370 76% 500 ML MDV (1 ML CHARGE) ONE (10:44)
[2023-01-11 11:14] LABS: Free T4 (Free Thyroxine) 2.02 ng/dL (0.70-1.48); Thyroid Stimulating Hormone 1.4631 uIU/mL (0.35-4.94)
[2023-01-11] MEDS: Vancomycin HCl 750 MG in Sodium Chloride 0.9% 250 ML 250 ML IVPB SCH (16:03)
[2023-01-11] MEDS: Mirtazapine 30 MG TAB PO SCH (21:09)
[2023-01-12] MEDS: Vancomycin HCl 750 MG in Sodium Chloride 0.9% 250 ML 250 ML IVPB SCH (02:23)
[2023-01-12] MEDS: Piperacillin/Tazobactam 3.375 GM in Sodium Chloride 0.9% 100 ML IVPB SCH ×2 (05:38→14:09)
[2023-01-12] MEDS: Levothyroxine Sodium 100 MCG TAB PO SCH (05:38)
[2023-01-12 08:48] LABS: #Basophils 0.1 thou/uL (0.0-0.2); #Eosinphils 0.1 thou/uL (0.0-0.7); #Monocytes 0.5 thou/uL (0.11-0.59); #Neutrophils 4.7 thou/uL (1.40-6.50); %Basophils 0.8 % (0.0-1.0); %Eosinophils 2.1 % (0.0-10.0); %Lymphocytes 14.7 % (21.0-51.0); %Monocytes 7.7 % (0.0-10.0); %Neutrophils 73.4 % (42.0-75.0); Hematocrit 26.2 % (36.0-47.0); Hemoglobin 8.5 g/dL (12.0-16.0); Mean Corpuscular HGB CONC 32.4 g/dL (32.0-36.0); Mean Corpuscular Hemoglobin 30.6 pg (27.0-31.0); Mean Corpuscular Volume 94.2 fl (78.0-98.0); Mean Platelet Volume 9.3 fL (7.4-10.4); Platelet Count 332 10x3/uL (130-400); RBC Distribution Width 16.3 % (11.5-14.5); Red Blood Cell (RBC) Count 2.78 mill/uL (4.20-5.40); White Blood Cell (WBC) Count 6.3 10x3/uL (4.8-10.8)
[2023-01-12 09:10] LABS: Anion Gap 11 mmol/L (10-20); BUN (Urea Nitrogen) 9 mg/dL (9.8-20.1); Calc. Creatinine Clearance 43 mL/min (70-130); Carbon Dioxide 25 mmol/L (23-31); Chloride 107 mmol/L (98-107); Estimated GFR 66; Glucose 82 mg/dL (80-115); Potassium 3.5 mmol/L (3.5-5.1); Sodium 139 mmol/L (136-145)
[2023-01-12] MEDS: Potassium Chloride 20 MEQ TAB PO SCH ×2 (09:31→16:47)
[2023-01-12] MEDS ORDERED: Potassium Chloride 20 MEQ TAB PO SCH (12:00)
[2023-01-12 13:22] LABS: Vancomycin, Trough 22.9 ug/mL
[2023-01-12] MEDS ORDERED: Megestrol Acetate 400 MG/10 ML UDCUP PO SCH (21:00)
[2023-01-12] MEDS: Megestrol Acetate 800 MG/20 ML UDCUP PO SCH (22:07)
[2023-01-12] MEDS: Mirtazapine 30 MG TAB PO SCH (22:07)
[2023-01-13] MEDS ORDERED: Vancomycin 1 GM in Premix Bag 1 BAG IVPB SCH (02:00)
[2023-01-13] MEDS: Levothyroxine Sodium 100 MCG TAB PO SCH (05:33)
[2023-01-13 06:57] LABS: Anion Gap 10 mmol/L (10-20); BUN (Urea Nitrogen) 9 mg/dL (9.8-20.1); Calc. Creatinine Clearance 47 mL/min (70-130); Calcium 8.2 mg/dL (7.8-10.44); Carbon Dioxide 24 mmol/L (23-31); Chloride 105 mmol/L (98-107); Estimated GFR 81; Glucose 73 mg/dL (80-115); Magnesium 2.1 mg/dL (1.6-2.6); Potassium 3.4 mmol/L (3.5-5.1); Sodium 136 mmol/L (136-145)
[2023-01-13] MEDS ORDERED: Potassium Chloride 20 MEQ TAB PO SCH (08:00)
[2023-01-13] MEDS ORDERED: Furosemide 40 MG TAB PO SCH (09:00)
[2023-01-13] MEDS: Megestrol Acetate 800 MG/20 ML UDCUP PO SCH (09:12)
[2023-01-13] MEDS: Potassium Chloride 20 MEQ TAB PO SCH (09:12)
[2023-01-13] MEDS ORDERED: Metoclopramide 10 MG/10 ML UDCUP PO SCH (11:30)
[2023-01-13 14:50] VITALS: BP 95/56; TEMP 98.2
== END 2023-01-13 15:20 | disposition home health service (06) | DRG 872 ==
LOC: CCU 01-11 00:44 → T4-A 01-11 13:07
PROVIDERS: ADMIT Student in an Organized Health Care Education/Training Program; ATTEND Emergency Medicine
DX: A41.9 Sepsis, unspecified organism (principal); I31.39 Other pericardial effusion (noninflammatory); I31.4 Cardiac tamponade; E46 Unspecified protein-calorie malnutrition; Z68.1 Body mass index [BMI] 19.9 or less, adult; J90 Pleural effusion, not elsewhere classified; E03.9 Hypothyroidism, unspecified; E87.6 Hypokalemia; L89.152 Pressure ulcer of sacral region, stage 2; D64.9 Anemia, unspecified; Z79.899 Other long term (current) drug therapy; Z98.890 Other specified postprocedural states
CPT/HCPCS: 36415; 71045; 71260; 74177; 80048; 80053; 80202; 81001; 83605; 83735; 84439; 84443; 84481; 85025; 87040; 87081; 93005; 93010; 93306; 96361; 96365; 96366; 96367; 97139; J0456; J0696; J2543; J3370; J3475; J3480; J3490; J7042; J7050; Q9967; S0028

== ENCOUNTER 2023-05-22 12:07 | Outpatient (CLI) | payer BC | END 2023-05-22 12:08 | disposition home or self-care (01) | LOC: BICMAMMO 12:07 | PROVIDERS: ATTEND Nurse Practitioner Family | DX: Z12.31 Encounter for screening mammogram for malignant neoplasm of breast (principal); Z80.3 Family history of malignant neoplasm of breast; Z85.850 Personal history of malignant neoplasm of thyroid | CPT/HCPCS: 77063; 77067 ==